=== PATIENT | female | born 1990 | race Caucasian/White ===

== ENCOUNTER 2016-04-11 16:35 | Emergency (ER) ==
[2016-04-11 16:42] VITALS: BP 119/79; TEMP 99.6; BMI 18.0
--- NOTE | 2016-04-11 17:00 | ED.PDOC ---
General ED Provider: Dr. DORIS CALLOWAY JR Chief Complaint: Tooth Problem Stated Complaint: pain and swelling in upper back molar on left side...cannot find a dentist. [ End ]2 DAYS 09/10 took ibuprofen, mouthwash, jr acetominphen on tooth. unknown allergy to keflex- tolerates pcn wihtout difficulty, nausea with codeine. ASTHMA LEFT UPPER MOLAR Time Seen by Physician: 17:11 Mode of Arrival: Walk-In Information Source: Patient Exam Limitations: No limitations Nursing and Triage Documentation Reviewed and Agree: No Review of Systems - Review Of Systems Constitutional: Reports: No symptoms Eyes: Reports: No symptoms Ears, Nose, Mouth, Throat: Reports: Mouth pain Respiratory: Reports: No symptoms Cardiac: Reports: No symptoms GI: Reports: No symptoms : Reports: No symptoms Musculoskeletal: Reports: Joint pain Skin: Reports: No symptoms Neurological: Reports: No symptoms Endocrine: Reports: No symptoms Hematologic/Lymphatic: Reports: No symptoms All Other Systems: Other Past Medical History - Past Medical History Previously Healthy: Yes Endocrine: Reports: None Cardiovascular: Reports: None Respiratory: Reports: Asthma Hematological: Reports: None Gastrointestinal: Reports: None Genitourinary: Reports: None Neuro/Psych: Reports: None 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) Cancer: Reports: None Last Menstrual Period: 04/10/16 - Surgical History General Surgical History: Reports: - Family History Family History: Reports: Unknown - Social History Smoking Status: Current some day smoker Hx Substance Use: No Alcohol Screening: None - Immunizations Tetanus Shot up to Date: Yes Physical Exam - Physical Exam Appearance: Ill-appearing Pain Distress: Moderate Eyes: ABIGAIL, EOMI, Conjunctiva clear ENT: Erythema (left second lower molar tender superficial cavity jaw tenderness) Neck: Supple Respiratory: Airway patent, Breath sounds clear, Breath sounds equal, Respirations nonlabored Critical Care Note - Critical Care Note Total Time (mins): 0 Course - Course Vital Signs: Temp Pulse Resp BP Pulse Ox 04/11/16 16:36 99.6 F 91 H 20 119/79 97 Departure - Departure Time of Disposition: 17:11 Disposition: HOME SELF-CARE Discharge Problem: Toothache Instructions: Dental Caries (ED), Toothache (ED) Condition: Stable Pt referred to PMD for follow-up: Yes (dentist) Additional Instructions: follow up dentist as soon as possible Motrin for pain [place] for pain not controlled [place] vk for infection follow up with dentist as soon as possible Prescriptions: Hydrocodone Bit/Acetaminophen [[place] 5-325] 1 - 2 tab PO Q6HR PRN #12 tablet PRN Reason: pain Penicillin V Potassium 500 mg PO QID #28 tablet Allergies/Adverse Reactions: Allergies cephalexin [From Keflex] Adverse Reaction (Verified 04/11/16 16:43) codeine Adverse Reaction (Verified 04/11/16 16:43) Home Medications: Ambulatory Orders Hydrocodone Bit/Acetaminophen [[place] 5-325] 1 - 2 tab PO Q6HR PRN #12 tablet 10/18 Penicillin V Potassium 500 mg PO QID #28 tablet 04/11/16
== END 2016-04-11 17:22 | disposition home or self-care (01) ==
LOC: ED 16:35
DX: K08.89 Other specified disorders of teeth and supporting structures (principal); K02.7 Dental root caries; F17.210 Nicotine dependence, cigarettes, uncomplicated
CPT/HCPCS: 99282

== ENCOUNTER 2016-11-11 08:48 | Emergency (ER) ==
[2016-11-11 08:54] VITALS: BP 123/71; TEMP 98.7; BMI 18.8
--- NOTE | 2016-11-11 09:02 | ED.PDOC ---
General ED Provider: Dr. BRAYDEN MILLER Chief Complaint: Cough Stated Complaint: Cough, productive of green sputum, x 2 days. Gets SOB with exertion. No fever or chills. Time Seen by Physician: 08:57 Mode of Arrival: Walk-In Information Source: Patient, Family Exam Limitations: No limitations Nursing and Triage Documentation Reviewed and Agree: Yes Respiratory Complaint Exam - Respiratory Complaint/Exam Onset/Duration: 2 days Symptoms Are: Still present Timing: Constant Initial Severity: Moderate Current Severity: Moderate Location: Chest Character: Reports: Productive cough (green sputum) Aggravating: Reports: None Alleviating: Reports: None Associated Signs and Symptoms: Reports: Pleuritic chest pain, Wheezing, Nasal congestion Related History: Reports: Similar episode (astma flare ups) History of Healthcare-Acquired Pneumonia: No Related Surgical History: Reports: None Pulmonary Embolism Risk Factors: Smoking Cardiac Risk Factors: Reports: Smoking Tuberculosis Risk Factors: Reports: None Status Asthmaticus Risk Factors: Reports: None Home Oxygen Use: No Recent Stress Test: No Recent Echo/LV Function: No Current Antibiotic Use: No Current Asthma Medication Use: No Respiratory Distress: None Inadequate Respiratory Effort: No Dysphagia Present: No Stridor Present: No JVD Present: No Accessory Muscle Use: No Retractions: Not Present Diminished Breath Sounds: No Sinus Tenderness: None Grunting Respirations: No Kussmaul Respirations: No Differential Diagnoses: Asthma, Bronchitis Quality Indicators For Pneumonia: SpO2 assessed, Mental status assessed (Mental status unremarkable) Review of Systems - Review Of Systems Constitutional: Reports: No symptoms Eyes: Reports: No symptoms Ears, Nose, Mouth, Throat: Reports: No symptoms Respiratory: Reports: Cough, Wheezing Cardiac: Reports: No symptoms GI: Reports: No symptoms : Reports: No symptoms Musculoskeletal: Reports: No symptoms Skin: Reports: No symptoms Neurological: Reports: No symptoms All Other Systems: Reviewed and Negative Past Medical History - Past Medical History Previously Healthy: Yes Endocrine: Reports: None Cardiovascular: Reports: None Respiratory: Reports: Asthma Hematological: Reports: None Gastrointestinal: Reports: None Genitourinary: Reports: None Neuro/Psych: Reports: None 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) Cancer: Reports: None Last Menstrual Period: 11/08/16 - Surgical History General Surgical History: Reports: - Family History Family History: Reports: Unknown - Social History Smoking Status: Current some day smoker Hx Substance Use: No Alcohol Screening: None - Immunizations Tetanus Shot up to Date: Yes Physical Exam - Physical Exam Appearance: Well-appearing, No pain distress, Well-nourished Ill-appearing: None Pain Distress: None Eyes: ABIGAIL, EOMI, Conjunctiva clear ENT: Nose normal, Oropharynx normal, TMs [place] (TMs kang and dull) Neck: Supple Respiratory: Airway patent, Breath sounds equal, Respirations nonlabored, Wheezes (exp wheezes only with cough or forced rapid expiration) Cardiovascular: RRR, Pulses normal, No rub, No murmur GI/: Soft, Nontender, No masses, Bowel sounds normal, No Organomegaly Musculoskeletal: Normal strength, ROM intact, No edema, No calf tenderness Skin: Warm, Dry, Normal color Neurological: Sensation intact, Motor intact, Reflexes intact, Cranial nerves intact, Alert, Oriented Psychiatric: Affect appropriate, Mood appropriate Critical Care Note - Critical Care Note Total Time (mins): 0 Course - Course Orders, Labs, Meds: Orders Category Date Time Status NEBULIZER TREATMENT Stat CARDIO 11/11/16 09:10 Ordered Albuterol Sulfate 0.083% Neb [Albuterol 0.083% Neb] MEDS 11/11/16 09:10 Stat 1 vial NEB ONCE STA Medications Discontinued Medications Generic Name Dose Route Start Last Admin Trade Name Freq PRN Reason Stop Dose Admin Albuterol Sulfate 1 vial 11/11/16 09:10 Albuterol 0.083% Neb NEB 11/11/16 09:11 ONCE STA Vital Signs: Temp Pulse Resp BP Pulse Ox 11/11/16 08:48 98.7 F 129 H 22 123/71 99 Departure - Departure Time of Disposition: 09:16 Disposition: HOME SELF-CARE Discharge Problem: Bronchitis, Asthma Instructions: Acute Bronchitis (ED) Condition: Good Pt referred to PMD for follow-up: No (if no better in 3 days, follow up with PCP ) Additional Instructions: Stop smoking Prescriptions: Amoxicillin/Potassium Clav [Augmentin 875-125 mg Tab] 1 tab PO Q12HR #20 tablet Albuterol Sulfate [Proair Hfa] 2 puff IH Q4H PRN #1 inhaler PRN Reason: shortness of breath/wheezing Hydrocodone Bit/Homatrop Me-Br [Hydrocodone-Homatropine Syrup] 5 ml PO BID PRN # 60 ml PRN Reason: Cough Allergies/Adverse Reactions: Allergies cephalexin [From Keflex] Adverse Reaction (Verified 11/11/16 08:56) codeine Adverse Reaction (Verified 11/11/16 08:56) Home Medications: Ambulatory Orders Albuterol Sulfate [Proair Hfa] 2 puff IH Q4H PRN #1 inhaler 11/11/16 Amoxicillin/Potassium Clav [Augmentin 875-125 mg Tab] 1 tab PO Q12HR #20 tablet 11/11/16 Hydrocodone Bit/Homatrop Me-Br [Hydrocodone-Homatropine Syrup] 5 ml PO BID PRN # 60 ml 11/11/16 Disposition Discussed With: Patient
[2016-11-11] MEDS ORDERED: ALBUTEROL 0.083% NEB NEB STA (09:10)
== END 2016-11-11 09:43 | disposition home or self-care (01) ==
LOC: ED 08:48
DX: J20.9 Acute bronchitis, unspecified (principal); J45.909 Unspecified asthma, uncomplicated; F17.210 Nicotine dependence, cigarettes, uncomplicated
CPT/HCPCS: 94640; 99282

== ENCOUNTER 2018-04-29 14:02 | Outpatient (CLI) | END 2018-04-29 14:03 | disposition home or self-care (01) | LOC: RHC-LAB 14:02 | PROVIDERS: ATTEND Nurse Practitioner Family | DX: J02.9 Acute pharyngitis, unspecified (principal) | CPT/HCPCS: 87651 ==

== ENCOUNTER 2018-06-12 09:14 | Outpatient (CLI) | END 2018-06-12 09:15 | disposition home or self-care (01) | LOC: RHC-LAB 09:14 → FCC-LAB 09:15 | PROVIDERS: ATTEND Family Medicine | DX: Z00.00 Encounter for general adult medical examination without abnormal findings (principal); Z87.898 Personal history of other specified conditions | CPT/HCPCS: 36415; 80053; 80061; 80306; 85025 ==